=== PATIENT | male | born 1965 | race Caucasian/White ===

== ENCOUNTER 2024-03-12 12:53 | Outpatient (CLI) | payer OTHER, SELFPAY | END 2024-03-12 12:54 | disposition home or self-care (01) | PROVIDERS: PCP Family Medicine; Visit Provider Family Medicine | DX: Z00.00 Encounter for general adult medical examination without abnormal findings (principal); Z12.5 Encounter for screening for malignant neoplasm of prostate; Z13.6 Encounter for screening for cardiovascular disorders; Z11.59 Encounter for screening for other viral diseases; Z13.1 Encounter for screening for diabetes mellitus | CPT/HCPCS: 80053; 80061; 86803; G0103 ==

== ENCOUNTER 2025-03-04 14:19 | Outpatient (CLI) | payer OTHER, SELFPAY | END 2025-03-04 14:20 | disposition home or self-care (01) | PROVIDERS: PCP Family Medicine; Visit Provider Family Medicine | DX: E78.00 Pure hypercholesterolemia, unspecified (principal); Z12.5 Encounter for screening for malignant neoplasm of prostate; Z82.49 Family history of ischemic heart disease and other diseases of the circulatory system | CPT/HCPCS: 80053; 80061; G0103 ==

== ENCOUNTER 2025-06-03 07:43 | Outpatient (CLI) | payer OTHER, SELFPAY | END 2025-06-03 07:44 | disposition home or self-care (01) | LOC: RAD 07:44 | PROVIDERS: PCP Family Medicine; Visit Provider Family Medicine | DX: Z13.6 Encounter for screening for cardiovascular disorders (principal); Z82.49 Family history of ischemic heart disease and other diseases of the circulatory system | CPT/HCPCS: 93306 ==